=== PATIENT | male | born 1995 | race Caucasian/White ===

== ENCOUNTER 2023-12-16 01:31 | Emergency (ER) | payer SELFPAY ==
[~2023-12-16] VITALS: Ht 172.7 cm; Wt 136.1 kg
[2023-12-16 01:47] VITALS: BP 126/82; PULSE 99; RESP 18; TEMP 97.3; O2SAT 98
[2023-12-16 01:53] VITALS: BP 126/82; PULSE 99; RESP 18; TEMP 97.3; O2SAT 98
[2023-12-16 02:37] LABS: AMPHETAMINE, URINE NEGATIVE ng/ml (NEG <=1000); BARBITURATE, URINE NEGATIVE ng/ml (NEG <=200); BENZODIAZEPINE, URINE NEGATIVE ng/mL (NEG <=200); CANNABINOID, URINE NEGATIVE ng/mL (NEG <=50); COCAINE, URINE NEGATIVE ng/mL (NEG <=300); OPIATE, URINE NEGATIVE ng/mL (NEG <=2000); PHENCYCLIDINE SCREEN,URINE NEGATIVE ng/mL (NEG <=25)
== END 2023-12-16 03:28 | disposition home or self-care (01) ==
LOC: MED 01:31
DX: F10.129 Alcohol abuse with intoxication, unspecified (principal); Y90.8 Blood alcohol level of 240 mg/100 ml or more
CPT/HCPCS: 36415; 80305; 82948; 99283; G0482